=== PATIENT | female | born 1995 | race Caucasian/White ===

== ENCOUNTER → 2017-08-18 | Outpatient (CLI) | payer BC ==
[2017-08-18 16:39] LABS: HEMATOCRIT 38.7 % (37.0-47.0); HEMOGLOBIN 12.8 g/dL (12.5-16.0); MEAN PLATELET VOLUME 10.2 fl (7.4-10.4); RED BLOOD COUNT 4.37 M/mm3 (4.10-5.30); RED CELL DISTRIBUTION WIDTH 12.1 % (11.5-14.5); WHITE BLOOD COUNT 6.3 K/mm3 (4.8-10.8)
[2017-08-18 16:51] LABS: ALBUMIN 4.3 g/dL (3.5-5.0); BUN/CREATININE RATIO 21.3 (6.0-26.0); CALCIUM 9.4 mg/dL (8.4-10.2); POTASSIUM 3.8 mmol/L (3.6-5.0); TOTAL PROTEIN 7.5 g/dL (6.3-8.2)
== END ==
LOC: LAB 16:23
PROVIDERS: Family Medicine
DX: E66.3 Overweight (principal)

== ENCOUNTER → 2018-09-06 | Outpatient (CLI) | payer BC ==
[2018-09-06 09:01] LABS: EOS % 0.7 % (1.0-5.0); HEMATOCRIT 38.8 % (37.0-47.0); HEMOGLOBIN 12.7 g/dL (12.5-16.0); LYMPH# 1.8 (1.50-4.00); MEAN CELL VOLUME 90 fl (78-100); MEAN CORPUSCULAR HEMOGLOBIN 29 pg (27-31); MEAN CORPUSCULAR HGB CONC 33 g/dL (33-37); MEAN PLATELET VOLUME 10.2 fl (7.4-10.4); MONO # 0.4 (0.20-0.80); NEU # 2.1 (1.40-6.50); PLATELET COUNT 299 K/mm3 (130-400); RED BLOOD COUNT 4.33 M/mm3 (4.10-5.30); RED CELL DISTRIBUTION WIDTH 11.9 % (11.5-14.5); WHITE BLOOD COUNT 4.4 K/mm3 (4.8-10.8)
[2018-09-06 09:07] LABS: ALBUMIN 4.4 g/dL (3.5-5.0); CALCIUM 9.3 mg/dL (8.4-10.2); POTASSIUM 4.9 mmol/L (3.6-5.0); TOTAL BILIRUBIN 1.8 mg/dL (0.2-1.3); TOTAL PROTEIN 7.4 g/dL (6.3-8.2)
[2018-09-07 01:19] LABS: DIRECT BILIRUBIN 0.3 mg/dL (0.0-0.4)
[2018-09-08 02:07] LABS: ANA SCREEN with REFLEX Negative (Negative)
== END ==
LOC: LAB 08:41
PROVIDERS: Family Medicine
DX: Z00.00 Encounter for general adult medical examination without abnormal findings (principal); R53.83 Other fatigue; R50.9 Fever, unspecified

== ENCOUNTER 2020-01-06 10:51 | Emergency (ER) | payer OTHER ==
[2020-01-06 11:33] LABS: EOS % 0.5 % (1.0-5.0); HEMATOCRIT 39.2 % (37.0-47.0); HEMOGLOBIN 12.4 g/dL (12.5-16.0); LYMPH# 1.7 (1.50-4.00); MEAN CELL VOLUME 90 fl (78-100); MEAN CORPUSCULAR HEMOGLOBIN 29 pg (27-31); MEAN CORPUSCULAR HGB CONC 32 g/dL (33-37); MEAN PLATELET VOLUME 9.7 fl (7.4-10.4); MONO # 0.4 (0.20-0.80); NEU # 3.6 (1.40-6.50); PLATELET COUNT 265 K/mm3 (130-400); RED BLOOD COUNT 4.34 M/mm3 (4.10-5.30); RED CELL DISTRIBUTION WIDTH 12.3 % (11.5-14.5); WHITE BLOOD COUNT 5.7 K/mm3 (4.8-10.8)
[2020-01-06 12:57] VITALS: BP 114/74
== END 2020-01-06 13:04 | disposition home or self-care (01) ==
LOC: ED 10:51
PROVIDERS: Family Medicine
DX: O46.91 Antepartum hemorrhage, unspecified, first trimester (principal); Z3A.01 Less than 8 weeks gestation of pregnancy

== ENCOUNTER → 2020-01-08 | Outpatient (CLI) | payer OTHER ==
[2020-01-06 12:57] VITALS: BP 114/74
== END ==
LOC: RAD 10:30
DX: O46.91 Antepartum hemorrhage, unspecified, first trimester (principal); Z3A.01 Less than 8 weeks gestation of pregnancy

== ENCOUNTER → 2020-01-11 | Outpatient (CLI) | payer OTHER ==
[2020-01-06 12:57] VITALS: BP 114/74
[2020-01-11 11:41] LABS: EOS % 0.6 % (1.0-5.0); HEMATOCRIT 38.7 % (37.0-47.0); HEMOGLOBIN 12.6 g/dL (12.5-16.0); LYMPH# 1.6 (1.50-4.00); MEAN CELL VOLUME 90 fl (78-100); MEAN CORPUSCULAR HEMOGLOBIN 29 pg (27-31); MEAN CORPUSCULAR HGB CONC 33 g/dL (33-37); MEAN PLATELET VOLUME 9.5 fl (7.4-10.4); MONO # 0.4 (0.20-0.80); NEU # 2.6 (1.40-6.50); PLATELET COUNT 304 K/mm3 (130-400); RED BLOOD COUNT 4.29 M/mm3 (4.10-5.30); RED CELL DISTRIBUTION WIDTH 12.1 % (11.5-14.5); WHITE BLOOD COUNT 4.7 K/mm3 (4.8-10.8)
[2020-01-11 12:02] LABS: ALBUMIN 4.2 g/dL (3.5-5.0); POTASSIUM 3.9 mmol/L (3.5-5.1)
[2020-01-11 12:03] LABS: CALCIUM 9.2 mg/dL (8.3-10.5)
[2020-01-11 12:04] LABS: TOTAL PROTEIN 7.4 g/dL (6.4-8.3)
[2020-01-11 12:06] LABS: TOTAL BILIRUBIN 0.6 mg/dL (0.2-1.2)
== END ==
LOC: LAB 11:28
PROVIDERS: Physician Assistant
DX: O46.90 Antepartum hemorrhage, unspecified, unspecified trimester (principal)

== ENCOUNTER → 2022-05-07 | Outpatient (CLI) | payer OTHER | LOC: LAB 11:52 | DX: L02.416 Cutaneous abscess of left lower limb (principal) ==

== ENCOUNTER → 2023-09-27 | Outpatient (CLI) | payer OTHER | LOC: LAB 16:02 | DX: Z32.01 Encounter for pregnancy test, result positive (principal) ==

== ENCOUNTER → 2024-04-18 | Outpatient (CLI) | payer OTHER ==
[2024-04-18 11:53] LABS: URINE APPEARANCE CLEAR (CLEAR); URINE COLOR YELLOW (YELLOW)
[2024-04-18 11:54] LABS: PH-URINE 6.5 (5.0 - 8.0); URINE BILIRUBIN NEGATIVE (NEGATIVE); URINE BLOOD NEGATIVE (NEGATIVE); URINE GLUCOSE NEGATIVE (NEGATIVE); URINE KETONE NEGATIVE (NEGATIVE); URINE LEUKOCYTE ESTERASE NEGATIVE (NEGATIVE); URINE NITRATE NEGATIVE (NEGATIVE); URINE PROTEIN(semi-quant) NEGATIVE (NEGATIVE)
[2024-04-18 11:58] LABS: D-DIMER 1.13 mg/L FEU (0.15-0.50)
[2024-04-18 14:14] LABS: HEMOGLOBIN 12.2 g/dL (12.5-16.0); MEAN CELL VOLUME 91 fl (78-100); MEAN CORPUSCULAR HEMOGLOBIN 30 pg (27-31); MEAN CORPUSCULAR HGB CONC 33 g/dL (33-37); MEAN PLATELET VOLUME 9.1 fl (7.4-10.4); PLATELET COUNT 196 K/mm3 (130-400); RED BLOOD COUNT 4.05 M/mm3 (4.10-5.30); RED CELL DISTRIBUTION WIDTH 12.9 % (11.5-14.5); WHITE BLOOD COUNT 5.4 K/mm3 (4.8-10.8)
[2024-04-18 14:21] LABS: ALBUMIN 3.3 g/dL (3.5-5.0)
[2024-04-18 14:23] LABS: TOTAL PROTEIN 6.3 g/dL (6.4-8.3)
[2024-04-18 14:25] LABS: TOTAL BILIRUBIN 0.7 mg/dL (0.2-1.2)
[2024-04-18 14:40] LABS: BAND 1 % (0-10); LYMPHOCYTE 7 % (20-51); METAMYELOCYTE 1 % (0-0); MONOCYTE 6 % (3-10); NEUTROPHILS 85 % (42-75)
== END ==
LOC: LAB 11:23
PROVIDERS: Nurse Practitioner Family
DX: R06.00 Dyspnea, unspecified (principal); R19.7 Diarrhea, unspecified